=== PATIENT | female | born 1980 | race African-American/Black ===

== ENCOUNTER 2019-04-10 06:46 | Emergency (ER) | payer MEDICAID ==
[~2019-04-10] VITALS: Ht 167.6 cm; Wt 98.0 kg
[2019-04-10 07:25] VITALS: BP 126/103
[2019-04-10] MEDS ORDERED: DEXAMETHASONE 10 MG/ML VIAL IM ONE (07:30)
== END 2019-04-10 07:43 | disposition home or self-care (01) ==
LOC: ER 06:46
DX: T78.40XA Allergy, unspecified, initial encounter (principal); X58.XXXA Exposure to other specified factors, initial encounter
CPT/HCPCS: 96372; 99283; J1100

== ENCOUNTER 2022-11-27 05:45 | Emergency (ER) | payer BC, MEDICAID ==
[~2022-11-27] VITALS: Ht 167.6 cm; Wt 104.0 kg
[2022-11-27] MEDS ORDERED: METHYLPREDNISOLONE SOD SUCC 125 MG/2 ML VIAL IV ONE (06:15)
[2022-11-27] MEDS ORDERED: DIPHENHYDRAMINE 50MG/ML VIAL IV ONE (06:15)
[2022-11-27] MEDS ORDERED: FAMOTIDINE 20MG/2ML VIAL IV ONE (06:15)
[2022-11-27] MEDS ORDERED: B50 PO (08:08)
[2022-11-27] MEDS ORDERED: P50 PO (08:08)
[2022-11-27] MEDS ORDERED: EPIN0.3P3 IM (08:08)
[2022-11-27 08:20] VITALS: BP 128/85
== END 2022-11-27 08:43 | disposition home or self-care (01) ==
LOC: ER 05:45
DX: T78.1XXA Other adverse food reactions, not elsewhere classified, initial encounter (principal); T78.49XA Other allergy, initial encounter; X58.XXXA Exposure to other specified factors, initial encounter
CPT/HCPCS: 96374; 96375; 99284; J1200; J2930; J3490; Z7610